=== PATIENT | female | born 1935 | race Caucasian/White ===

== ENCOUNTER → 2022-03-11 | Outpatient (CLI) | payer MEDICARE, BC ==
--- NOTE | 2022-03-11 13:16 | US ---
EXAMINATION TYPE: US venous doppler duplex LE LT DATE OF EXAM: 03/11/2022 12:56 PM COMPARISON: NONE CLINICAL HISTORY: R22.42 SWELLING, MASS AND LUMP LT LOWER LIMB. Left leg swelling x 6 months, patient taking aspirin SIDE PERFORMED: Left TECHNIQUE: The lower extremity deep venous system is examined utilizing real time linear array sonog sarah with graded compression, doppler sonography and color-flow sonography. VESSELS IMAGED: Common Femoral Vein Deep Femoral Vein Greater Saphenous Vein * Femoral Vein Popliteal Vein Small Saphenous Vein * Proximal Calf Veins (* superficial vessels) Left Leg: Appears negative for DVT IMPRESSION: No evidence for DVT.
== END | disposition home or self-care (01) ==
LOC: RADUSWWP 12:30
PROVIDERS: ATTEND Family Medicine
DX: R22.42 Localized swelling, mass and lump, left lower limb (principal)

== ENCOUNTER 2023-02-18 12:43 | Emergency (ER) | payer MEDICARE, BC ==
--- NOTE | 2023-02-18 12:46 | ED ---
Neuro HPI - General Stated Complaint: neuro issues Time Seen by Provider: 02/18/23 12:44 Source: RN notes reviewed, old records reviewed, Caregiver Mode of arrival: EMS Limitations: no limitations - History of Present Illness Is the patient presenting with stroke symptoms?: Yes -: minutes(s) Initial Comments: This is a 87-year-old female to the emergency department today. Patient's brought in by EMS stroke symptoms. Patient has significant left-sided deficit. Elevated blood pressure. Altered mental status. No history of stroke. No trauma history. No blood thinners per history, patient's a poor strain currently secondary to clinical condition, history obtained from EMS Location: speech, dysarthria, left arm, left leg Place: home Severity: moderate Quality: weak, numb, tingling, constant Worsens With: none On Anticoagulants: No Associated Symptoms: confusion, weakness Treatments Prior to Arrival: none - Related Data Allergies/Adverse Reactions: Allergies Allergy/AdvReac Type Severity Reaction Status Date / Time No Known Allergies Allergy Verified 02/18/23 12:50 Review of Systems ROS Statement: Those systems with pertinent positive or pertinent negative responses have been documented in the HPI. ROS Other: All systems not noted in ROS Statement are negative. General Exam - General Exam Comments Initial Comments: NIH 12 Limitations: altered mental status General appearance: alert, anxious, lethargic, obtunded Head exam: Present: atraumatic, normocephalic, normal inspection Eye exam: Present: normal appearance, PERRL, EOMI. Absent: scleral icterus, conjunctival injection, periorbital swelling ENT exam: Present: normal exam, mucous membranes moist Neck exam: Present: normal inspection. Absent: tenderness, meningismus, lymphadenopathy Respiratory exam: Present: normal lung sounds bilaterally. Absent: respiratory distress, wheezes, rales, rhonchi, stridor Cardiovascular Exam: Present: irregular rhythm, normal heart sounds. Absent: systolic murmur, diastolic murmur, rubs, gallop, clicks GI/Abdominal exam: Present: soft, normal bowel sounds. Absent: distended, tenderness, guarding, rebound, rigid Extremities exam: Present: normal inspection, full ROM, normal capillary refill. Absent: tenderness, pedal edema, joint swelling, calf tenderness Back exam: Present: normal inspection Neurological exam: Present: altered, oriented X3, CN II-XII intact Psychiatric exam: Present: depressed Skin exam: Present: warm, dry, intact, normal color. Absent: rash Stroke MDM - Lab Data Result diagrams: 02/18/23 12:56 02/18/23 12:56 Lab Results 02/18/23 02/18/23 02/18/23 Range/Units 12:45 12:56 12:56 WBC 9.6 (3.8-10.6) k/uL RBC 4.75 (3.80-5.40) m/uL Hgb 15.0 (11.4-16.0) gm/dL Hct 45.8 (34.0-46.0) % MCV 96.6 (80.0-100.0) fL MCH 31.7 (25.0-35.0) pg MCHC 32.8 (31.0-37.0) g/dL RDW 12.9 (11.5-15.5) % Plt Count 193 (150-450) k/uL MPV 8.6 Neutrophils % 57 % Lymphocytes % 34 % Monocytes % 6 % Eosinophils % 1 % Basophils % 0 % Neutrophils # 5.4 (1.3-7.7) k/uL Lymphocytes # 3.2 (1.0-4.8) k/uL Monocytes # 0.5 (0-1.0) k/uL Eosinophils # 0.1 (0-0.7) k/uL Basophils # 0.0 (0-0.2) k/uL PT 11.5 (9.0-12.0) sec INR 1.1 (<1.2) APTT 22.7 (22.0-30.0) sec Sodium (137-145) mmol/L Potassium (3.5-5.1) mmol/L Chloride (98-107) mmol/L Carbon Dioxide (22-30) mmol/L Anion Gap mmol/L BUN (7-17) mg/dL Creatinine (0.52-1.04) mg/dL Est GFR (CKD-EPI)AfAm (>60 ml/min/1.73 sqM) Est GFR (CKD-EPI)NonAf (>60 ml/min/1.73 sqM) Glucose (74-99) mg/dL POC Glucose (mg/dL) 173 H (70-110) mg/dL POC Glu Quality Assurance Clerk ID Pamella Mckee Calcium (8.4-10.2) mg/dL Total Bilirubin (0.2-1.3) mg/dL AST (14-36) U/L ALT (4-34) U/L Alkaline Phosphatase (38-126) U/L Creatine Kinase (30-135) U/L Troponin I (0.000-0.034) ng/mL Total Protein (6.3-8.2) g/dL Albumin (3.5-5.0) g/dL 02/18/23 02/18/23 02/18/23 Range/Units 12:56 12:56 14:18 WBC (3.8-10.6) k/uL RBC (3.80-5.40) m/uL Hgb (11.4-16.0) gm/dL Hct (34.0-46.0) % MCV (80.0-100.0) fL MCH (25.0-35.0) pg MCHC (31.0-37.0) g/dL RDW (11.5-15.5) % Plt Count (150-450) k/uL MPV Neutrophils % % Lymphocytes % % Monocytes % % Eosinophils % % Basophils % % Neutrophils # (1.3-7.7) k/uL Lymphocytes # (1.0-4.8) k/uL Monocytes # (0-1.0) k/uL Eosinophils # (0-0.7) k/uL Basophils # (0-0.2) k/uL PT (9.0-12.0) sec INR (<1.2) APTT (22.0-30.0) sec Sodium 136 L (137-145) mmol/L Potassium 3.4 L (3.5-5.1) mmol/L Chloride 101 (98-107) mmol/L Carbon Dioxide 25 (22-30) mmol/L Anion Gap 10 mmol/L BUN 18 H (7-17) mg/dL Creatinine 0.73 (0.52-1.04) mg/dL Est GFR (CKD-EPI)AfAm 86 (>60 ml/min/1.73 sqM) Est GFR (CKD-EPI)NonAf 75 (>60 ml/min/1.73 sqM) Glucose 187 H (74-99) mg/dL POC Glucose (mg/dL) 203 H (70-110) mg/dL POC Glu Quality Assurance Clerk ID Indra Mai Calcium 9.6 (8.4-10.2) mg/dL Total Bilirubin 1.8 H (0.2-1.3) mg/dL AST 50 H (14-36) U/L ALT 48 H (4-34) U/L Alkaline Phosphatase 75 (38-126) U/L Creatine Kinase 49 (30-135) U/L Troponin I <0.012 (0.000-0.034) ng/mL Total Protein 7.9 (6.3-8.2) g/dL Albumin 4.3 (3.5-5.0) g/dL - NIH Stroke Scale 1a. Level of Consciousness: (3) responds reflex/autonomic 1b. LOC Questions: (1) answers 1 question correctly 1c. LOC Commands: (1) performs 1 task correctly 2. Best Gaze: (2) forced deviation 3. Visual: (1) partial hemianopia 4. Facial Palsy: (1) minor paralysis 5a. Motor Arm Left: (3) no gravity effort 5b. Motor Arm Right: (0) no drift 6a. Motor Leg Left: (3) no gravity effort 6b. Motor Leg Right: (0) no drift 7. Limb Ataxia: (2) present 2 limbs 8. Sensory: (1) mild/moderate sensory loss 9. Best Language: (0) no aphasia 10. Dysarthria: (0) normal 11. Extinction/Inattention: (0) no abnormality - Thrombolytic Inclusion/Exclusion Thrombolytic Inclusion Criteria: Symptom Onset < 4.5 h, NIH Stroke Scale Deficit - Medical Decision Making 87 female DF for evaluation of significant neural and cell, elevated blood pressure hypertensive emergency CVA. Patient given tPA will be transferred for neuro intervention regarding MCA CVA - Radiology Data Radiology results: report reviewed, image reviewed - EKG Data -: EKG Interpreted by Me (EKG is A. fib 67 QRS 94 QTC 395) Course Vital Signs 02/18/23 02/18/23 02/18/23 12:46 12:50 13:02 Temperature 98.7 F 98.7 F Pulse Rate 83 66 76 Respiratory 16 16 18 Rate Blood Pressure 192/104 196/116 188/127 O2 Sat by Pulse 96 95 96 Oximetry Fraction of Inspired Oxygen (FIO2) 02/18/23 02/18/23 02/18/23 13:05 13:10 13:20 Temperature Pulse Rate 66 70 75 Respiratory 16 16 18 Rate Blood Pressure 196/92 168/100 189/105 O2 Sat by Pulse 95 94 L 94 L Oximetry Fraction of Inspired Oxygen (FIO2) 02/18/23 02/18/23 02/18/23 13:35 13:50 14:05 Temperature Pulse Rate 71 78 80 Respiratory 18 18 18 Rate Blood Pressure 175/109 163/98 156/87 O2 Sat by Pulse 94 L 94 L 97 Oximetry Fraction of Inspired Oxygen (FIO2) 02/18/23 02/18/23 02/18/23 14:13 14:21 14:47 Temperature Pulse Rate 70 89 85 Respiratory 4 L 18 Rate Blood Pressure 134/94 156/94 111/66 O2 Sat by Pulse 65 L 91 L 99 Oximetry Fraction of 100 Inspired Oxygen (FIO2) 02/18/23 02/18/23 02/18/23 14:48 14:59 15:06 Temperature Pulse Rate 87 84 Respiratory 18 18 Rate Blood Pressure 116/69 122/76 O2 Sat by Pulse 98 99 Oximetry Fraction of 100 Inspired Oxygen (FIO2) - Reevaluation(s) Reevaluation #1: 02/18/23 12:45 Medical record is reviewed Code stroke on patient arrival Reevaluation #2: 02/18/23 13:24 TPA is delayed secondary to blood pressure control, patient significantly hypertensive on arrival and remains hypertensive after CT 02/18/23 14:30 Patient has significant change in clinical symptoms prior to transfer became unresponsive and apneic with significantly low respiratory rate did not lose pulse. Patient was able to be ventilated and increased supplemental O2 to improve pulse oxygenation mental status does not improve Blood sugar was checked normal, high normal Spoke with family at length regarding end-of-life wishes, decision made to make patient full code, patient will be in with a for airway protection, altered mental status, prolonged apneic episodes with hypoxia Patient was intubated secondary to airway protection Reevaluation #3: 02/18/23 13:58 She has no change in symptoms here in the ER Family informed of findings and results Reevaluation #4: 02/18/23 12:45 Was pt. sent in by a medical professional or institution? @ -no Did you speak to anyone other than the patient for history? @ -no Did you review nursing and triage notes? @ -agree Were old charts reviewed? @ -no Differential Diagnosis? @ -prior EKG interpreted by me (3pts min.)? @ -yes X-rays interpreted by me (1pt min.)? @ -yes CT interpreted by me (1pt min.)? @ -no U/S interpreted by me (1pt. min.)? @ -no What testing was considered but not performed? (CT, X-rays, U/S, labs)? Why? @ -no What meds were considered but not given? Why? @ -no Did you discuss the management of the patient with other professionals? @ -no Did you reconcile home meds? @ -no Was smoking cessation discussed for >3mins.? @ -no Was critical care preformed (if so, how long)? @ -no Were there social determinants of health that impacted care today? How? (Homelessness, low income, unemployed, alcoholism, drug addiction, transportation, low edu. Level, literacy, decrease access to med. care, intermediate, rehab)? @ -no Was there de-escalation of care discussed even if they declined? (Discuss DNR or withdrawal of care, Hospice)? @ -no What co-morbidities impacted this encounter? (DM, HTN, Smoking, COPD, CAD, Cancer, CVA, Hep., AIDS, mental health diagnosis, sleep apnea, morbid obesity)? @ -none Was patient admitted / discharged? @ -87 female to be admitted for CVA, patient be transferred for inpatient treatment of CVA, embolism Admitted, transferred Undiagnosed new problem with uncertain prognosis? @ -no Drug Therapy requiring intensive monitoring for toxicity (Heparin, Nitro, Insulin, Cardizem)? @ -no Were any procedures done? @ -Intubation Diagnosis/symptom? @ -CVA Acute, or Chronic, or Acute on Chronic? @ -no Uncomplicated (without systemic symptoms) or Complicated (systemic symptoms)? @ -uncomplicated Side effects of treatment? @ -no Exacerbation, Progression, or Severe Exacerbation] @ -no Poses a threat to life or bodily function? @ -Gyes with CVA Reevaluation #5: 02/18/23 12:45 Differential Altered Mental Status: Hypoglycemia, DKA, hypercapnia, ETOH, overdose, CO poisoning, trauma, myxedema coma, HTN encephalopathy, infection, encephalitis, psychosis, intercranial hemorrhage, hepatic encephalopathy, meningitis, CVA, this is not meant to be an all-inclusive list - Consultations Consultation #1: Spoke with neuro interventional Dr. Dooley on initial evaluation of patient as well as pending of CT reports, after patient was given tPA patient is found to be candidate for neuro intervention and will be transferred to [facility] Patient is accepted in transfer Procedures - Intubation Sedative: Versed Laryngoscope: Nahun Size: 4 Assist Device Used: Bougie ET Tube Size: 7 ET Tube Uncuffed: No Tube Secured Location: lips Tube Placement Confirmation: visualized tube passing through cords, equal breath sounds bilaterally, no breath sounds over epigastrium, confirmation by capnometry Patient Tolerated Procedure: well Intubation Complications: none Critical Care Time Critical Care Time: Yes Total Critical Care Time: 95 Disposition Clinical Impression: Altered mental status, CVA (cerebral vascular accident), Hypertensive emergency, Acute respiratory failure Disposition: TRANSFER TO SHORT TERM HOSP Condition: Critical Is patient prescribed a controlled substance at d/c from ED?: No Referrals: Fredi Moncada DO [Primary Care Provider] - 1-2 days Time of Disposition: 13:10 - Out of Hospital Transfer - Req. Specs Out of Hospital Transfer - Requested Specifics: Neurological ICU ([facility])
[2023-02-18] MEDS ORDERED: LABETALOL 5 MG/ML VIAL MDV IVP STA (12:49)
[2023-02-18] MEDS ORDERED: SODIUM CHLORIDE 0.9% 1,000 ML IV STA (12:49)
[2023-02-18 12:50] VITALS: TEMP 98.7
[2023-02-18] MEDS ORDERED: ALTEPLASE 58 MG in EMPTY BAG 1 BAG IV STA (12:51)
[2023-02-18] MEDS ORDERED: ALTEPLASE BOLUS FOR STROKE 6 MG in EMPTY SYRINGE 1 SYR IV STA (12:51)
[2023-02-18 12:54] LABS: Glucose,Whole Blood 173 mg/dL (70-110)
[2023-02-18 13:02] LABS: Basophils % (A) 0 %; Eosinophils # (A) 0.1 k/uL (0-0.7); Eosinophils % (A) 1 %; HCT 45.8 % (34.0-46.0); Lymphocytes # (A) 3.2 k/uL (1.0-4.8); Lymphocytes % (A) 34 %; MCH 31.7 pg (25.0-35.0); MCHC 32.8 g/dL (31.0-37.0); MCV 96.6 fL (80.0-100.0); Mean Platelet Volume 8.6; Monocytes # (A) 0.5 k/uL (0-1.0); Monocytes % (A) 6 %; Neutrophils # (A) 5.4 k/uL (1.3-7.7); Neutrophils % (A) 57 %; Platelet Count 193 k/uL (150-450); RBC 4.75 m/uL (3.80-5.40); RDW 12.9 % (11.5-15.5); WBC 9.6 k/uL (3.8-10.6)
[2023-02-18] MEDS ORDERED: ONDANSETRON 4 MG/2 ML VIAL IVP STA (13:03)
[2023-02-18 13:16] LABS: Albumin 4.3 g/dL (3.5-5.0); Calcium 9.6 mg/dL (8.4-10.2); Potassium 3.4 mmol/L (3.5-5.1); Total Bilirubin 1.8 mg/dL (0.2-1.3); Total Protein 7.9 g/dL (6.3-8.2)
--- NOTE | 2023-02-18 13:19 | CT ---
EXAMINATION TYPE: CT brain wo con for TPA DATE OF EXAM: 02/18/2023 COMPARISON: None HISTORY: 87-year-old female neurologic deficit, acute, stroke suspected, CODE ALTEPLASE TECHNIQUE: Examination was done in axial plane without intravenous contrast. Coronal and sagittal r econstructions performed. CT DLP: 1155.4 mGycm Automated exposure control for dose reduction was used. FINDINGS: There is no evidence of acute intracranial hemorrhage, acute ischemic changes, mass, mass-effect, or extra-axial fluid collection. There is no effacement of cerebral sulci or basal subarachnoid cister ns. There is no hydrocephalus. There is no midline shift. Humphrey-white matter distinction is preserv ed. Benign hyperostosis frontalis interna paranasal sinuses and mastoid air cells well pneumatized. Orbit s and globes are intact. IMPRESSION: No acute intracranial abnormality seen.
[2023-02-18 13:22] LABS: INR 1.1 (<1.2); Partial Thromboplastin Time 22.7 sec (22.0-30.0); Prothrombin Time 11.5 sec (9.0-12.0)
[2023-02-18] MEDS ORDERED: CLEVIDIPINE BUTYRATE 25 MG in EMPTY BAG 1 BAG IV SCH (13:30)
--- NOTE | 2023-02-18 13:56 | CT ---
EXAMINATION TYPE: CT angio head neck DATE OF EXAM: 02/18/2023 COMPARISON: CT brain same day HISTORY: 87-year-old female with neurologic deficit, acute, stroke suspected TECHNIQUE: Contiguous axial scanning of the head and neck performed with IV Contrast, patient injecte d with 75 mL of Isovue 370. Coronal/sagittal MIP reconstructions performed. 3-D reconstructions gener ated on a dedicated independent workstation. CT DLP: 1669. 4 mGycm Automated exposure control for dose reduction was used. FINDINGS: NECK: Heart appears mildly enlarged. 1.3 cm right paratracheal node. Some additional borderline size nonenl arged AP window nodes. Aberrant direct takeoff of the left vertebral artery directly from the aortic arch. The vertebral arteries appear codominant. There is loss of opacification of the upper V3 segment righ t vertebral artery. Etiology is unclear. This appears to be a gradual loss but without any proximal h igh-grade stenosis seen. Early take off of the left PICA. The V4 segment left vertebral artery become s hypoplastic. Possible contribution to the right PICA from the left side. Right common carotid artery is patent. Tortuosity of the proximal right common carotid artery. Carotid bifurcation is patent. Retropharyngeal course right ICA. Right ICA is patent. NASCET criteria was utilized. Left common and left internal carotid arteries are patent. HEAD: Again, hypoplastic V4 left vertebral artery. There may be a severe stenosis distal V4 left vertebral artery. Nonvisualization of the right vertebral artery. Basilar artery is patent. Hypoplastic P1 segment left APPRAISAL SPECIALIST. Persistent origin left APPRAISAL SPECIALIST, diffusel y diminutive but probably patent. Possible cut off after the proximal portion of the P2 segment right posterior cerebral artery, axial image 136. Mild atherosclerotic calcifications in the carotid siphons. There is high-grade stenosis at the bilat eral M1 segments of the middle cerebral arteries. Diminutive M2 and more distal branches are visualiz ed on both sides. 3 mm nodular prominence supraclinoid right ICA along the communicating segment. IMPRESSION: THE UPPER CERVICAL RIGHT VERTEBRAL ARTERY, DISTAL V4 SEGMENT LEFT VERTEBRAL ARTERY, AND RIGHT APPRAISAL SPECIALIST ARE MOST CONCERNING FOR ACUTE FINDINGS. CONSIDER THROMBOEMBOLIC PHENOMENON. RECOMMEND MRI. NECK: 1. GRADUAL LOSS OF OPACIFICATION OF THE UPPER V3 SEGMENT RIGHT VERTEBRAL ARTERY IN THE NECK. 2. VARIANT DIRECT TAKEOFF OF THE LEFT VERTEBRAL ARTERY DIRECTLY FROM THE AORTIC ARCH. 3. NO SIGNIFICANT STENOSIS OF EITHER COMMON OR INTERNAL CAROTID ARTERIES IN THE NECK. HEAD: 4. NONVISUALIZATION OF THE V4 SEGMENT RIGHT VERTEBRAL ARTERY SUGGESTING OCCLUSION. THE LEFT VERTEBRAL ARTERY BECOMES HYPOPLASTIC AND MAY HAVE A SEVERE DISTAL STENOSIS PRIOR TO THE BASILAR ARTERY. THE RI GHT PICA MAY HAVE A CONTRIBUTION FROM THE LEFT SIDE. 5. WHILE THE BASILAR ARTERY IS PATENT, THERE IS A SEVERELY DIMINUTIVE PERSISTENT ORIGIN LEFT PC A. HOWEVER, FINDINGS ARE CONCERNING FOR RIGHT APPRAISAL SPECIALIST OCCLUSION JUST AFTER THE P1 SEGMENT. 6. IN ADDITION, THERE APPEAR TO BE HIGH-GRADE STENOSES AT THE M1 SEGMENTS OF THE BILATERAL MCA's. UNC LEAR IF THIS IS A CHRONIC FINDING THE M2 AND MORE DISTAL BRANCHES ARE VISUALIZED, SEVERELY DIMINUT COCO IN CALIBER. 7. POSSIBLE 3 MM ANEURYSM POSTERIORLY FROM THE SUPRACLINOID RIGHT ICA LIKELY ALONG THE COMMUNICATING SEGMENT. CALLED TO THE ER at 1:52 PM.
[2023-02-18] MEDS: SODIUM CHLORIDE 0.9% 50 ML MINI-BAG IV ONE ×2 (14:20→15:10)
[2023-02-18 14:24] LABS: Glucose,Whole Blood 203 mg/dL (70-110)
[2023-02-18 14:48] VITALS: RESP 18
--- NOTE | 2023-02-18 15:06 | CT ---
EXAMINATION TYPE: CT brain wo con DATE OF EXAM: 02/18/2023 COMPARISON: 02/18/2023 HISTORY: ams CT DLP: 1080.3 mGycm Automated exposure control for dose reduction was used. FINDINGS: No acute hemorrhage. There remains a hyperdense area within the right vertebral artery which is suspi cious for acute thrombosis. Mild generalized degenerative change. There is sulcal effacement right p osterior temporal and occipital lobes. No midline shift or mass effect. Orbits are symmetric. Calvarium intact. Craniocervical junction maintained. Hyperostosis of the front al bone incidentally noted. IMPRESSION: 1. THERE IS SULCAL EFFACEMENT RIGHT POSTERIOR TEMPORAL AND OCCIPITAL LOBES SUGGESTIVE OF ACUTE ISCHEM IA. NO ACUTE HEMORRHAGE. 2. ABNORMAL CTA FINDINGS LESS APPARENT BY NONCONTRAST STANDARD HEAD CT TECHNIQUE. THERE DOES APPEAR T O BE A HYPERDENSE RIGHT VERTEBRAL ARTERY AND ACUTE THROMBOSIS IN THE DIFFERENTIAL DIAGNOSIS. OTHER AB NORMALITIES NOTED BY CTA ARE LESS APPARENT BY STANDARD NONCONTRAST CT HEAD.
[2023-02-18 15:09] VITALS: BP 122/76; PULSE 84
--- NOTE | 2023-02-18 15:14 | XR ---
EXAMINATION TYPE: XR chest 1V portable DATE OF EXAM: 02/18/2023 COMPARISON: NONE HISTORY: Intubation TECHNIQUE: Single frontal view of the chest is obtained. FINDINGS: ET tube 4 cm above woody. NG tube in the level of the gastric fundus. Heart is enlarged a nd there is coarsened interstitium. Atherosclerotic change aorta. No evidence of pleural effusion or pneumothorax.There is a left perihilar area of increased density which could be evaluated on subsequent x-rays as the patient's condition tolerates to assess for cons olidation or mass. IMPRESSION: 1. ET tube appears in good position. 2. Correlate for chronic interstitial pulmonary fibrosis UIP type. There is a left perihilar area of increased density which could be evaluated on subsequent x-rays as the patient's condition tolerates to assess for consolidation or mass.
== END 2023-02-18 15:06 | disposition short-term general hospital (02) ==
LOC: EC 12:43 → SUPCPDRO 12:43 → EC 15:06
DX: I63.9 Cerebral infarction, unspecified (principal); R41.82 Altered mental status, unspecified; I16.1 Hypertensive emergency; J96.00 Acute respiratory failure, unspecified whether with hypoxia or hypercapnia; R29.712 NIHSS score 12
CPT/HCPCS: 96375 ×4; 31500 ×2; 96361 ×2; 96365 ×2; 99291 ×2; 99292 ×2; 37195 ×2; 36415; 94002; 93005; 80053; 82550; 84484; 85025; 85610; 85730; 71045; 70496; 70450 ×2; 70498; J2997; J3360; J2405; J2704; C9248; Q9967